=== PATIENT | female | born 1950 | race Caucasian/White ===

== ENCOUNTER 2018-04-16 10:56 | Observation (INO) | payer OTHER ==
[~2018-04-16] VITALS: Ht 167.6 cm; Wt 90.7 kg
[2018-04-16] MEDS ORDERED: SODIUM CHLORIDE 0.9% 1,000 ML IV ONE (12:00)
[2018-04-16] MEDS ORDERED: TETANUS-DIPTH-ACEL PERTUSSIS 0.5ML SYRG IM ONE (12:00)
[2018-04-16] MEDS ORDERED: MEPERIDINE HCL (25 MG/ML) 1ML VIAL IV ONE ×2 (13:45→20:00)
[2018-04-16] MEDS ORDERED: cefTRIAXone 1GM/10ml IVPUSH 10 ML IV ONE (13:45)
[2018-04-16] MEDS ORDERED: PROMETHAZINE HCL 25 MG/ML 1ML IV ONE ×2 (13:45→20:00)
[2018-04-16 14:07] LABS: Basophils # (auto) 0.1 uL; Basophils % (auto) 0.6 % (0.0-2.0); Eosinophils # (auto) 0.1 uL; Eosinophils % (auto) 0.5 % (0.0-7.0); Hemoglobin 15.3 g/dL (12.2-16.2); Lymphocytes # (auto) 0.9 uL; Lymphocytes % (auto) 8.9 % (10.0-50.0); Mean Corpuscular Volume 91.2 fL (80.0-100.0); Monocytes # (auto) 0.8 uL; Monocytes % (auto) 8.4 % (0.0-12.0); Neutrophils # (auto) 8.2 uL; Neutrophils % (auto) 81.6 % (37.0-80.0); Nucleated Red Blood Cells % 0.1 %; Platelet Count (auto) 160 10^3/uL (140-450); Red Blood Cells 4.94 10^6/uL (4.0-5.20); Red Cell Distribution Width 13.5 % (11.8-14.3)
[2018-04-16 14:20] LABS: INR 1.1 (0.9-1.15); Partial Thromboplastin Time 27.9 sec (23.78-33.04); Prothrombin Time 11.7 sec (9.27-12.13)
[2018-04-16 14:29] LABS: Alanine Aminotransferase 37 U/L (13-56); Alkaline Phosphatase 118 U/L (45-117); Anion Gap 6 (5-15); Aspartate Aminotransferase 49 U/L (15-37); BUN/Creatinine Ratio 15.5; Bilirubin, Total 1.1 mg/dL (0.2-1.0); Blood Urea Nitrogen 13 mg/dL (7-18); Calcium 8.8 mg/dL (8.5-10.1); Carbon Dioxide 26 mmol/L (21-32); Chloride 109 mmol/L (98-107); GFR African American 87 mL/min; GFR Non-African American 72 mL/min; Glucose 107 mg/dL (74-106); Magnesium 2.3 mg/dL (1.6-2.6); Potassium 4.2 mmol/L (3.5-5.1); Sodium 141 mmol/L (136-145); Total Protein 7.6 g/dL (6.4-8.2)
[2018-04-16 22:55] VITALS: BP 129/74
== END 2018-04-16 23:40 | disposition short-term general hospital (02) | DRG 563 ==
LOC: ER 10:56 → OVERFLOW 10:57 → ER 23:40
PROVIDERS: ADMIT Family Medicine; ATTEND Family Medicine
DX: S42.332A Displaced oblique fracture of shaft of humerus, left arm, initial encounter for closed fracture (principal); S01.511A Laceration without foreign body of lip, initial encounter; I10 Essential (primary) hypertension; W19.XXXA Unspecified fall, initial encounter; Y93.89 Activity, other specified; Y92.89 Other specified places as the place of occurrence of the external cause; Y99.8 Other external cause status; Z82.49 Family history of ischemic heart disease and other diseases of the circulatory system
CPT/HCPCS: 36415; 70450; 71101; 71250; 72125; 73060; 80053; 82962; 83605; 83735; 84484; 85025; 85610; 85730; 87040; 90471; 90715; 93005; 96361; 96374; 96375; 96376; 99291; G0378; J2175; J2550; J7030

== ENCOUNTER 2023-01-06 17:43 | Emergency (ER) | payer OTHER ==
[~2023-01-06] VITALS: Ht 182.9 cm; Wt 90.6 kg
[2023-01-06 18:17] LABS: Basophils # (auto) 0.1 10 ^3/uL (0-0.2); Basophils % (auto) 0.5 % (0.0-2.0); Eosinophils # (auto) 0.1 10 ^3/uL (0-0.8); Eosinophils % (auto) 0.8 % (0.0-7.0); Hematocrit 46.4 % (36.0-46.0); Hemoglobin 15.4 g/dL (12.2-16.2); Lymphocytes % (auto) 15.7 % (10.0-50.0); Mean Corpuscular Hemoglobin 29.7 pg (28.0-32.0); Mean Corpuscular Hgb Conc. 33.2 g/dL (32.0-36.0); Mean Corpuscular Volume 89.3 fL (80.0-100.0); Monocytes % (auto) 8.1 % (0.0-12.0); Neutrophils # (auto) 9.5 10 ^3/uL (1.6-8.6); Neutrophils % (auto) 74.9 % (37.0-80.0); Nucleated Red Blood Cells % 0.3 %; Red Cell Distribution Width 14.5 % (11.8-14.3); White Blood Cell 12.7 10^3/uL (4.4-10.8)
[2023-01-06 18:24] VITALS: BP 145/79
[2023-01-06 18:41] LABS: Albumin 3.2 g/dL (3.4-5.0); Calcium 9.3 mg/dL (8.5-10.1); Potassium 4.2 mmol/L (3.5-5.1)
[2023-01-06 18:46] LABS: BUN/Creatinine Ratio 22.6; Bilirubin, Total 1.3 mg/dL (0.2-1.0); Total Protein 6.9 g/dL (6.4-8.2)
[2023-01-06] MEDS ORDERED: CEPH-510 PO (19:44)
[2023-01-06] MEDS ORDERED: CLIN300C8 PO (19:44)
== END 2023-01-06 20:42 | disposition home or self-care (01) ==
LOC: ER 17:43
DX: L03.116 Cellulitis of left lower limb (principal); L03.115 Cellulitis of right lower limb; I10 Essential (primary) hypertension; Z91.040 Latex allergy status
CPT/HCPCS: 36415; 80053; 83880; 84484; 85025; 93970